=== PATIENT | female | born 1990 | race Hispanic/Latino ===

== ENCOUNTER 2019-09-03 08:56 | Inpatient (IN) | payer SELFPAY ==
[~2019-09-03] VITALS: Ht 141 cm; Wt 82.6 kg
[2019-09-03 10:13] LABS: AMPHET/METH SCREEN,URINE NEGATIVE (NEGATIVE); BARBITURATE SCREEN, URINE NEGATIVE (NEGATIVE); BENZODIAZEPINES SCREEN,URINE NEGATIVE (NEGATIVE); CANNABINOID SCREEN,URINE NEGATIVE (NEGATIVE); COCAINE SCREEN,URINE NEGATIVE (NEGATIVE); OPIATE SCREEN,URINE NEGATIVE (NEGATIVE); PHENCYCLIDINE SCREEN,URINE NEGATIVE (NEGATIVE)
[2019-09-03 10:14] LABS: APPEARANCE,URINE CLEAR (CLEAR); BILIRUBIN,URINE NEGATIVE (NEGATIVE); COLOR,URINE YELLOW (YELLOW); GLUCOSE, URINE (UA) NEGATIVE (NEGATIVE); KETONES,URINE NEGATIVE (NEGATIVE); LEUKOCYTE ESTERASE ,URINE SMALL (NEGATIVE); NITRATE,URINE NEGATIVE (NEGATIVE); OCCULT BLOOD,URINE NEGATIVE (NEGATIVE); PH,URINE 6.5 (5.0-8.0); PROTEIN,URINE NEGATIVE (NEGATIVE); UROBILINOGEN,URINE 0.2 mg/dL (0.2-1.0)
[2019-09-03 10:17] LABS: BACTERIA,URINE Rare /HPF (None Seen); RBC,URINE None Seen /HPF (0-1); SQUAMOUS EPITHELIAL CELL,UR Rare /HPF (0-2)
[2019-09-03] MEDS ORDERED: LACTATED RINGERS 1000ML 1,000 ML IV PRN (10:19)
[2019-09-03] MEDS ORDERED: EPHEDRINE SULFATE 50 MG/ML AMPULE IVP PRN (10:30)
[2019-09-03] MEDS ORDERED: AMPICILLIN 2GM+NS 100ML 100 ML IV SCH (10:30)
[2019-09-03] MEDS ORDERED: AMPICILLIN 1GM+NS 50ML 50 ML IV SCH (10:30)
[2019-09-03] MEDS ORDERED: LACTATED RINGERS 500 ML 500 ML IV PRN (10:30)
[2019-09-03] MEDS ORDERED: NALOXONE HCL 0.4 MG/1 ML ML IV PRN (10:30)
[2019-09-03] MEDS ORDERED: BUTORPHANOL TARTRATE 2 MG/ML IVP PRN (10:30)
[2019-09-03 10:41] LABS: HEMATOCRIT 37.4 % (36-48); MEAN CORPUSCULAR HEMOGLOBIN 28.4 pg (27.0-33.0); MEAN CORPUSCULAR HGB CONC 33.6 g/dL (32.0-36.0); MEAN CORPUSCULAR VOLUME 84.6 fL (79-99); NUCLEATED RED BLOOD CELLS 0.1 % (0.0-0.19); PLATELET COUNT (AUTO) 204 K/uL (130-400); RED BLOOD CELL COUNT(AUTO) 4.42 MIL/uL (4.00-5.50); RED CELL DISTRIBUTION WIDTH 16.1 % (11.0-15.5); WHITE BLOOD COUNT (AUTO) 10.2 K/uL (4.8-10.8)
[2019-09-03] MEDS ORDERED: OXYTOCIN-LR 20 UNITS/1000 ML 1,000 ML IV ONE (11:24)
[2019-09-03] MEDS ORDERED: OXYTOCIN-LR 20 UNITS/1000 ML 1,000 ML IV SCH (11:30)
[2019-09-03] MEDS ORDERED: ACETAMINOPHEN-CODEINE 300/30MG TAB PO PRN (13:45)
[2019-09-03] MEDS ORDERED: WITCH HAZEL 1 PAD TP PRN (13:45)
[2019-09-03] MEDS ORDERED: DIPH,PERTUSS(ACELL),TET VAC/PF 0.5 ML VIAL IM PRN (13:45)
[2019-09-03] MEDS ORDERED: MEASLES/MUMPS/RUBELLA VACCINE, LIVE 0.5 ML/VIAL SQ PRN (13:45)
[2019-09-03] MEDS ORDERED: BENZOCAINE/LANOLIN/ALOE VERA 60 ML AEROSOL TP PRN (13:45)
[2019-09-03] MEDS ORDERED: ACETAMINOPHEN 325 MG TAB PO PRN (13:45)
[2019-09-03] MEDS ORDERED: LANOLIN 30GM OINTMENT TP PRN (13:45)
[2019-09-03 14:21] LABS: APPEARANCE,URINE Clear (CLEAR); BILIRUBIN,URINE Negative (NEGATIVE); COLOR,URINE Yellow (YELLOW); GLUCOSE, URINE (UA) Negative (NEGATIVE); KETONES,URINE Negative (NEGATIVE); LEUKOCYTE ESTERASE ,URINE Moderate (NEGATIVE); NITRATE,URINE Negative (NEGATIVE); OCCULT BLOOD,URINE Negative (NEGATIVE); PH,URINE 6.5 (5.0-8.0); PROTEIN,URINE Negative (NEGATIVE); UROBILINOGEN,URINE 0.2 mg/dL (0.2-1.0)
[2019-09-03 15:19] VITALS: BP 128/66
[2019-09-03] MEDS: IBUPROFEN 600 MG TABLET PO PRN (15:45)
[2019-09-03] MEDS ORDERED: FLU VACC QS2019-20 36MOS UP/PF 60 MCG/0.5 ML ML IM ONE (16:45)
[2019-09-03 19:24] VITALS: BP 132/58
[2019-09-03] MEDS: DOCUSATE SODIUM 100 MG CAP PO SCH (21:13)
[2019-09-03 23:40] VITALS: BP 106/45
[2019-09-04] MEDS: IBUPROFEN 600 MG TABLET PO PRN ×2 (02:31→08:53)
[2019-09-04 03:28] VITALS: BP 105/72
[2019-09-04 07:15] LABS: HEPATITIS Bs ANTIGEN SCREEN P Negative (Negative)
[2019-09-04 07:59] VITALS: BP 115/66
[2019-09-04] MEDS: DOCUSATE SODIUM 100 MG CAP PO SCH (08:53)
[2019-09-04 11:35] VITALS: BP 126/69
--- NOTE | 2019-09-04 11:53 | NUR ---
[place] PLAN VISITED WITH PATIENT. PATIENT AND SPOUSE IN ROOM. SAID THAT THEY ARE FROM [place] AND HAD BEEN GETTING CARE THERE. ASKED IF PLANNING TO RETURN FOR [facility] AND FOR BABY SAID NOT YET PLAN TO SPEND A COUPLE MONTHS WITH AUTH. ROCKY CHIU [phone]. ASKED IF THEY HAD MADE ARRANGEMENTS FOR THE BABY SAID HAD CAR SEAT AND STUFF FOR BABY AT [facility]UNTS HOME AND AUNT WILL BE DRIVING THEM AROUND. ASKED ABOUT FOLLOW UP APPOINTMENTS FOR BABY SAID NOT SURE WHO THEY WILL SEE OR HOW THEY WILL PAY. SENT MESSAGE TO [facility] TO EVAL FOR BABY MEDICAID. LET NURSE KNOW ABOUT GIVING LIST OF PEDIATRICIANS TO MOM. LET NURSE KNOW OF PLAN AND [facility] TO VISIT. Addendum: 09/04/19 at 1157 by NEGRITA COOK RN CM Amended: Links added.
[2019-09-04] MEDS ORDERED: MEASLES/MUMPS/RUBELLA VACCINE, LIVE 0.5 ML/VIAL SQ ONE ×2 (14:26→15:30)
--- NOTE | 2019-09-04 16:50 | NUR ---
DISCHARGE PATIENT LEFT UNIT VIA WHEELCHAIR WITH BABY IN ARMS ACCOMPANIED BY FAMILY. PERSONAL VEHICLE USED FOR TRANSPORTATION. BABY STAYED IN NURSERY FOR OBSERVATION.
== END 2019-09-04 16:50 | disposition home or self-care (01) | DRG 807 ==
LOC: EDH 08:56 → OBSVTOIN 08:57 → LDH 08:57 → WSH 15:09
PROVIDERS: ADMIT Obstetrics & Gynecology; ATTEND Obstetrics & Gynecology
PROC: 10E0XZZ Delivery of Products of Conception, External Approach (ICD-10-PCS; principal; 2019-09-03)
PROC: 3E0234Z Introduction of Serum, Toxoid and Vaccine into Muscle, Percutaneous Approach (ICD-10-PCS; 2019-09-04)
DX: O62.2 Other uterine inertia (principal); Z37.0 Single live birth; O48.0 Post-term pregnancy; Z3A.41 41 weeks gestation of pregnancy; Z23 Encounter for immunization
CPT/HCPCS: 36415; 80305; 81001; 85027; 86592; 86701; 86850; 86900; 86901; 87340; 87390; 90707; 90715; A4351; G0008; G0378; J0290; J2590